=== PATIENT | male | born 1970 | race Caucasian/White ===

== ENCOUNTER 2022-03-23 07:12 | Emergency (ER) | payer OTHER ==
[~2022-03-23] VITALS: Ht 185.4 cm; Wt 102.1 kg
[2022-03-23] MEDS ORDERED: ALLEGRA ALLERGY60 MG PO (08:04)
[2022-03-23] MEDS ORDERED: DICLOFENAC POTA50 MG PO (11:00)
[2022-03-23] MEDS ORDERED: ORPHENADRINE C100 MG PO (11:00)
[2022-03-23] MEDS ORDERED: MEDROLPACK PO (11:00)
== END 2022-03-23 11:36 ==
LOC: ER 07:12
DX: M25.512 Pain in left shoulder (principal); M75.52 Bursitis of left shoulder; Z88.7 Allergy status to serum and vaccine